=== PATIENT | male | born 1970 | race Caucasian/White ===

== ENCOUNTER 2022-06-28 09:16 | Inpatient (IN) | payer SELFPAY ==
[2022-06-28 10:57] LABS: #Basophils 0.1 thou/uL (0.0-0.2); #Eosinphils 0.4 thou/uL (0.0-0.7); #Lymphocytes 1.2 thou/uL (1.20-3.40); #Monocytes 0.6 thou/uL (0.11-0.59); #Neutrophils 7.4 thou/uL (1.40-6.50); %Basophils 0.5 % (0.0-1.0); %Eosinophils 4.1 % (0.0-10.0); %Lymphocytes 12.7 % (21.0-51.0); %Monocytes 5.8 % (0.0-10.0); %Neutrophils 76.9 % (42.0-75.0); Hemoglobin 12.9 g/dL (14.0-18.0); Mean Corpuscular HGB CONC 33.9 g/dL (32.0-36.0); Mean Corpuscular Hemoglobin 29.7 pg (27.0-31.0); Mean Corpuscular Volume 87.6 fL (78.0-98.0); Mean Platelet Volume 6.7 fL (7.4-10.4); Platelet Count 293 thou/uL (130-400); RBC Distribution Width 11.1 % (11.5-14.5); Red Blood Cell (RBC) Count 4.35 mill/uL (4.70-6.10); White Blood Cell (WBC) Count 9.6 thou/uL (4.8-10.8)
[2022-06-28] MEDS ORDERED: Cefepime 2 GM VIAL ONE (11:06)
[2022-06-28 11:17] LABS: ALT (SGPT) 11 U/L (8-55); AST (SGOT) 10 U/L (5-34); Alkaline Phosphatase 85 U/L (40-110); Anion Gap 13 mmol/L (10-20); BUN (Urea Nitrogen) 28 mg/dL (8.4-25.7); Bilirubin, Total 0.6 mg/dL (0.2-1.2); Calc. Creatinine Clearance 0 mL/min (70-130); Carbon Dioxide 22 mmol/L (22-29); Chloride 101 mmol/L (98-107); Estimated GFR 76; Globulin 3.2 g/dL (2.4-3.5); Glucose 405 mg/dL (70-105); Potassium 4.6 mmol/L (3.5-5.1); Protein, Total 7.2 g/dL (6.0-8.3); Sodium 131 mmol/L (136-145)
[2022-06-28] MEDS ORDERED: Vancomycin 1 GM/200 ML BAG ONE (11:59)
[2022-06-28] MEDS ORDERED: Dextrose 50% Abboject 50 ML SYRINGE SLOW IVP PRN (13:26)
[2022-06-28] MEDS ORDERED: Dextrose 5% in Water 1,000 ML IV PRN (13:26)
[2022-06-28] MEDS ORDERED: Acetaminophen 325 MG TAB PO PRN (13:53)
[2022-06-28] MEDS ORDERED: NEED HT/WT IVPB PRN (14:12)
[2022-06-28 16:04] VITALS: BMI 22.6
[2022-06-28] MEDS: Sodium Chloride 0.9% 1,000 ML IV SCH (16:28)
[2022-06-28] MEDS ORDERED: Vancomycin HCl 500 MG in Sodium Chloride 0.9% 100 ML IVPB SCH (16:30)
[2022-06-28] MEDS: HumaLOG 300 UNITS/3 ML VIAL SC PRN ×2 (17:40→21:43)
[2022-06-28] MEDS: Famotidine 20 MG TAB PO SCH (20:19)
[2022-06-28] MEDS: Cefepime 2 GM in Sodium Chloride 0.9% 100 ML IVPB SCH (20:19)
[2022-06-28] MEDS ORDERED: Vancomycin 1 GM in Premix Bag 1 BAG IVPB SCH (21:00)
[2022-06-29] MEDS: VANCOMYCIN 1.25 GM/250 ML BAG 1.25 GM in Premix Bag 1 BAG IVPB SCH ×2 (00:36→12:28)
[2022-06-29 06:25] LABS: #Basophils 0.1 thou/uL (0.0-0.2); #Eosinphils 0.5 thou/uL (0.0-0.7); #Lymphocytes 1.5 thou/uL (1.20-3.40); #Monocytes 0.6 thou/uL (0.11-0.59); #Neutrophils 5.1 thou/uL (1.40-6.50); %Basophils 0.9 % (0.0-1.0); %Eosinophils 6.6 % (0.0-10.0); %Lymphocytes 19.3 % (21.0-51.0); %Monocytes 7.4 % (0.0-10.0); %Neutrophils 65.8 % (42.0-75.0); Hemoglobin 12.4 g/dL (14.0-18.0); Mean Corpuscular Hemoglobin 30.7 pg (27.0-31.0); Mean Corpuscular Volume 87.5 fL (78.0-98.0); Mean Platelet Volume 6.6 fL (7.4-10.4); Platelet Count 293 thou/uL (130-400); RBC Distribution Width 11.1 % (11.5-14.5); Red Blood Cell (RBC) Count 4.06 mill/uL (4.70-6.10); White Blood Cell (WBC) Count 7.8 thou/uL (4.8-10.8)
[2022-06-29 06:51] LABS: Anion Gap 9 mmol/L (10-20); BUN (Urea Nitrogen) 16 mg/dL (8.4-25.7); Calc. Creatinine Clearance 97 mL/min (70-130); Carbon Dioxide 25 mmol/L (22-29); Chloride 104 mmol/L (98-107); Estimated GFR 96; Glucose 288 mg/dL (70-105); Potassium 4.2 mmol/L (3.5-5.1); Sodium 134 mmol/L (136-145)
[2022-06-29 07:40] LABS: Hemoglobin A1c 9.8 % (4.0-6.0)
[2022-06-29] MEDS: Enoxaparin Sodium 40 MG/0.4 ML SYRINGE SC SCH (08:06)
[2022-06-29] MEDS: Famotidine 20 MG TAB PO SCH ×2 (08:06→20:44)
[2022-06-29] MEDS: Sodium Chloride 0.9% 1,000 ML IV SCH (08:06)
[2022-06-29] MEDS: Cefepime 2 GM in Sodium Chloride 0.9% 100 ML IVPB SCH ×2 (08:06→20:43)
[2022-06-29] MEDS ORDERED: fentaNYL Citrate/PF 100 MCG/2 ML SYRINGE ONE (10:14)
[2022-06-29] MEDS ORDERED: Bacitracin Zinc Ointment 30 gm TUBE ONE (10:15)
[2022-06-29] MEDS ORDERED: Bupivacaine/Epinephrine 0.25% 30 ML VIAL ONE (10:15)
[2022-06-29] MEDS ORDERED: Ondansetron PF 4 MG/2 ML Vial ONE (10:31)
[2022-06-29] MEDS ORDERED: PROPOFOL 200 MG/20 ML VIAL ONE (10:31)
[2022-06-29] MEDS ORDERED: Lidocaine 1% MPF 2 ML VIAL ONE (10:31)
[2022-06-29] MEDS ORDERED: Promethazine HCl 25 MG/ML VIAL IVPB PRN (11:35)
[2022-06-29] MEDS ORDERED: Ondansetron HCl/PF 4 MG/2 ML Vial IVP PRN (11:35)
[2022-06-29] MEDS ORDERED: Promethazine HCl 25 MG/ML VIAL IM PRN (11:35)
[2022-06-29] MEDS: HumaLOG 300 UNITS/3 ML VIAL SC PRN ×2 (12:45→17:06)
[2022-06-29] MEDS ORDERED: Morphine 2 MG/ML VIAL SLOW IVP PRN (12:51)
[2022-06-29] MEDS ORDERED: HYDROcodone/Acetaminophen 5/325 mg Tablet PO PRN (12:51)
[2022-06-29] MEDS ORDERED: hydrALAZINE 20 MG/ML VIAL SLOW IVP PRN (13:15)
[2022-06-29] MEDS: metFORMIN 500 MG TAB PO SCH (17:06)
[2022-06-29] MEDS: Insulin NPH Human Isophane 100 UNIT/ML (10 ML VIAL) SC SCH (20:44)
[2022-06-29 23:58] LABS: Vancomycin, Trough 12.5 ug/mL
[2022-06-30] MEDS: VANCOMYCIN 1.25 GM/250 ML BAG 1.25 GM in Premix Bag 1 BAG IVPB SCH (00:05)
[2022-06-30] MEDS: HumaLOG 300 UNITS/3 ML VIAL SC PRN ×3 (05:41→17:30)
[2022-06-30 07:05] LABS: #Basophils 0.1 thou/uL (0.0-0.2); #Eosinphils 0.4 thou/uL (0.0-0.7); #Lymphocytes 1.4 thou/uL (1.20-3.40); #Monocytes 0.5 thou/uL (0.11-0.59); #Neutrophils 3.7 thou/uL (1.40-6.50); %Basophils 1.2 % (0.0-1.0); %Eosinophils 7.2 % (0.0-10.0); %Lymphocytes 23.4 % (21.0-51.0); %Monocytes 7.7 % (0.0-10.0); %Neutrophils 60.6 % (42.0-75.0); Hemoglobin 11.8 g/dL (14.0-18.0); Mean Corpuscular HGB CONC 33.8 g/dL (32.0-36.0); Mean Corpuscular Hemoglobin 29.4 pg (27.0-31.0); Mean Corpuscular Volume 86.9 fL (78.0-98.0); Mean Platelet Volume 6.6 fL (7.4-10.4); Platelet Count 270 thou/uL (130-400); RBC Distribution Width 11.1 % (11.5-14.5); Red Blood Cell (RBC) Count 4.03 mill/uL (4.70-6.10); White Blood Cell (WBC) Count 6.1 thou/uL (4.8-10.8)
[2022-06-30 07:12] LABS: Anion Gap 12 mmol/L (10-20); BUN (Urea Nitrogen) 16 mg/dL (8.4-25.7); Calc. Creatinine Clearance 93 mL/min (70-130); Carbon Dioxide 23 mmol/L (22-29); Cardiac Risk 6.6 (Less than 4.5); Chloride 105 mmol/L (98-107); Cholesterol 138 mg/dl (< 200 Desired); Estimated GFR 91; Glucose 261 mg/dL (70-105); HDL Cholesterol 21 mg/dL (>60 Neg Risk); LDL Cholesterol, Calculated 80 mg/dL; Magnesium 2.2 mg/dL (1.6-2.6); Potassium 4.1 mmol/L (3.5-5.1); Sodium 136 mmol/L (136-145); Triglycerides 184 mg/dL (Less than 150)
[2022-06-30 07:13] LABS: ALT (SGPT) 11 U/L (8-55); AST (SGOT) 11 U/L (5-34); Albumin 3.6 g/dL (3.5-5.0); Alkaline Phosphatase 75 U/L (40-110); Bilirubin, Direct 0.1 mg/dL (0.1-0.3); Bilirubin, Total 0.3 mg/dL (0.2-1.2); CRP (Inflammatory) 2.25 mg/dL (= or < 0.5); Protein, Total 7.2 g/dL (6.0-8.3)
[2022-06-30] MEDS: Cefepime 2 GM in Sodium Chloride 0.9% 100 ML IVPB SCH ×2 (08:24→21:16)
[2022-06-30] MEDS: metFORMIN 500 MG TAB PO SCH ×2 (08:25→17:30)
[2022-06-30] MEDS: Famotidine 20 MG TAB PO SCH ×2 (08:25→21:16)
[2022-06-30] MEDS: Enoxaparin Sodium 40 MG/0.4 ML SYRINGE SC SCH (08:25)
[2022-06-30] MEDS: Insulin NPH Human Isophane 100 UNIT/ML (10 ML VIAL) SC SCH ×2 (08:26→21:28)
[2022-06-30] MEDS ORDERED: Lisinopril 5 MG TAB PO SCH (10:15)
[2022-06-30] MEDS: Vancomycin 1.5 GRAM/300 ML BAG 1.5 GM in Premix Bag 1 BAG IVPB SCH (12:06)
[2022-07-01] MEDS: Vancomycin 1.5 GRAM/300 ML BAG 1.5 GM in Premix Bag 1 BAG IVPB SCH ×2 (00:47→12:24)
[2022-07-01] MEDS: HumaLOG 300 UNITS/3 ML VIAL SC PRN ×3 (06:28→16:49)
[2022-07-01 06:47] LABS: #Basophils 0.1 thou/uL (0.0-0.2); #Eosinphils 0.5 thou/uL (0.0-0.7); #Lymphocytes 1.7 thou/uL (1.20-3.40); #Monocytes 0.5 thou/uL (0.11-0.59); #Neutrophils 3.6 thou/uL (1.40-6.50); %Basophils 1.3 % (0.0-1.0); %Eosinophils 7.7 % (0.0-10.0); %Lymphocytes 27.1 % (21.0-51.0); %Neutrophils 55.8 % (42.0-75.0); Hemoglobin 11.6 g/dL (14.0-18.0); Mean Corpuscular HGB CONC 35.2 g/dL (32.0-36.0); Mean Corpuscular Hemoglobin 30.9 pg (27.0-31.0); Mean Corpuscular Volume 87.8 fL (78.0-98.0); Mean Platelet Volume 6.8 fL (7.4-10.4); Platelet Count 283 thou/uL (130-400); Red Blood Cell (RBC) Count 3.74 mill/uL (4.70-6.10); White Blood Cell (WBC) Count 6.4 thou/uL (4.8-10.8)
[2022-07-01 07:05] LABS: Anion Gap 11 mmol/L (10-20); BUN (Urea Nitrogen) 21 mg/dL (8.4-25.7); Calc. Creatinine Clearance 94 mL/min (70-130); Calcium 8.9 mg/dL (7.8-10.44); Carbon Dioxide 23 mmol/L (22-29); Chloride 105 mmol/L (98-107); Estimated GFR 92; Glucose 358 mg/dL (70-105); Magnesium 1.9 mg/dL (1.6-2.6); Potassium 4.1 mmol/L (3.5-5.1); Sodium 135 mmol/L (136-145)
[2022-07-01] MEDS: Cefepime 2 GM in Sodium Chloride 0.9% 100 ML IVPB SCH (08:10)
[2022-07-01] MEDS: Enoxaparin Sodium 40 MG/0.4 ML SYRINGE SC SCH (08:10)
[2022-07-01] MEDS: Famotidine 20 MG TAB PO SCH ×2 (08:10→20:32)
[2022-07-01] MEDS: metFORMIN 500 MG TAB PO SCH ×2 (08:10→16:49)
[2022-07-01] MEDS: Lisinopril 5 MG TAB PO SCH (08:11)
[2022-07-01] MEDS: Insulin NPH Human Isophane 100 UNIT/ML (10 ML VIAL) SC SCH ×2 (08:11→20:33)
[2022-07-01 12:01] LABS: Vancomycin, Trough 15.6 ug/mL
[2022-07-01] MEDS ORDERED: Dextrose 5% in Water 1,000 ML IV PRN (12:41)
[2022-07-01] MEDS ORDERED: Dextrose 50% Abboject 50 ML SYRINGE SLOW IVP PRN (12:41)
[2022-07-01] MEDS: Cholecalciferol 1,000 UNITS (25 MCG) TAB PO SCH (20:32)
[2022-07-02] MEDS: Vancomycin 1.5 GRAM/300 ML BAG 1.5 GM in Premix Bag 1 BAG IVPB SCH ×2 (01:00→11:28)
[2022-07-02 06:17] LABS: #Eosinphils 0.5 thou/uL (0.0-0.7); #Lymphocytes 1.7 thou/uL (1.20-3.40); #Monocytes 0.5 thou/uL (0.11-0.59); #Neutrophils 4.1 thou/uL (1.40-6.50); %Basophils 0.7 % (0.0-1.0); %Lymphocytes 24.7 % (21.0-51.0); %Monocytes 7.4 % (0.0-10.0); %Neutrophils 60.2 % (42.0-75.0); Hemoglobin 11.9 g/dL (14.0-18.0); Mean Corpuscular HGB CONC 35.6 g/dL (32.0-36.0); Mean Corpuscular Hemoglobin 31.1 pg (27.0-31.0); Mean Corpuscular Volume 87.3 fL (78.0-98.0); Mean Platelet Volume 6.6 fL (7.4-10.4); Platelet Count 288 thou/uL (130-400); RBC Distribution Width 11.2 % (11.5-14.5); Red Blood Cell (RBC) Count 3.83 mill/uL (4.70-6.10); White Blood Cell (WBC) Count 6.8 thou/uL (4.8-10.8)
[2022-07-02 06:33] LABS: Anion Gap 13 mmol/L (10-20); BUN (Urea Nitrogen) 24 mg/dL (8.4-25.7); Calc. Creatinine Clearance 84 mL/min (70-130); Calcium 9.6 mg/dL (7.8-10.44); Carbon Dioxide 22 mmol/L (22-29); Chloride 105 mmol/L (98-107); Estimated GFR 80; Glucose 265 mg/dL (70-105); Magnesium 1.8 mg/dL (1.6-2.6); Sodium 136 mmol/L (136-145)
[2022-07-02] MEDS: Famotidine 20 MG TAB PO SCH ×2 (08:18→21:15)
[2022-07-02] MEDS: Enoxaparin Sodium 40 MG/0.4 ML SYRINGE SC SCH (08:18)
[2022-07-02] MEDS: Lisinopril 5 MG TAB PO SCH (08:19)
[2022-07-02] MEDS: metFORMIN 500 MG TAB PO SCH ×2 (08:19→17:23)
[2022-07-02] MEDS: Insulin NPH Human Isophane 100 UNIT/ML (10 ML VIAL) SC SCH ×2 (08:19→21:19)
[2022-07-02] MEDS ORDERED: Lisinopril 5 MG TAB PO SCH (08:52)
[2022-07-02] MEDS: Lisinopril 10 MG TAB PO SCH (09:24)
[2022-07-02] MEDS: HumaLOG 300 UNITS/3 ML VIAL SC PRN ×3 (11:33→21:20)
[2022-07-02] MEDS: Cholecalciferol 1,000 UNITS (25 MCG) TAB PO SCH (21:15)
[2022-07-02 23:38] LABS: Vancomycin, Trough 13.9 ug/mL
[2022-07-03] MEDS: Vancomycin 1.5 GRAM/300 ML BAG 1.5 GM in Premix Bag 1 BAG IVPB SCH ×3 (00:30→23:49)
[2022-07-03] MEDS: HumaLOG 300 UNITS/3 ML VIAL SC PRN ×2 (05:43→11:19)
[2022-07-03 06:38] LABS: #Basophils 0.1 thou/uL (0.0-0.2); #Eosinphils 0.5 thou/uL (0.0-0.7); #Lymphocytes 1.7 thou/uL (1.20-3.40); #Monocytes 0.6 thou/uL (0.11-0.59); #Neutrophils 4.3 thou/uL (1.40-6.50); %Basophils 0.8 % (0.0-1.0); %Eosinophils 7.4 % (0.0-10.0); %Lymphocytes 23.9 % (21.0-51.0); %Monocytes 8.2 % (0.0-10.0); %Neutrophils 59.8 % (42.0-75.0); Mean Corpuscular HGB CONC 33.7 g/dL (32.0-36.0); Mean Corpuscular Hemoglobin 29.5 pg (27.0-31.0); Mean Corpuscular Volume 87.7 fL (78.0-98.0); Mean Platelet Volume 6.4 fL (7.4-10.4); Platelet Count 299 thou/uL (130-400); RBC Distribution Width 11.1 % (11.5-14.5); Red Blood Cell (RBC) Count 4.08 mill/uL (4.70-6.10); White Blood Cell (WBC) Count 7.2 thou/uL (4.8-10.8)
[2022-07-03 07:00] LABS: Anion Gap 12 mmol/L (10-20); BUN (Urea Nitrogen) 24 mg/dL (8.4-25.7); Calc. Creatinine Clearance 89 mL/min (70-130); Calcium 9.4 mg/dL (7.8-10.44); Carbon Dioxide 23 mmol/L (22-29); Chloride 104 mmol/L (98-107); Estimated GFR 86; Glucose 255 mg/dL (70-105); Magnesium 1.7 mg/dL (1.6-2.6); Potassium 3.8 mmol/L (3.5-5.1); Sodium 135 mmol/L (136-145)
[2022-07-03] MEDS: Famotidine 20 MG TAB PO SCH ×2 (08:36→21:29)
[2022-07-03] MEDS: Lisinopril 10 MG TAB PO SCH (08:36)
[2022-07-03] MEDS: metFORMIN 500 MG TAB PO SCH ×2 (08:36→16:15)
[2022-07-03] MEDS: Insulin NPH Human Isophane 100 UNIT/ML (10 ML VIAL) SC SCH ×2 (08:37→21:29)
[2022-07-03] MEDS: Enoxaparin Sodium 40 MG/0.4 ML SYRINGE SC SCH (08:37)
[2022-07-03] MEDS ORDERED: glipiZIDE 5 MG TAB PO SCH (11:00)
[2022-07-03] MEDS: glipiZIDE 5 MG TAB PO SCH (16:15)
[2022-07-03] MEDS: Cholecalciferol 1,000 UNITS (25 MCG) TAB PO SCH (21:29)
[2022-07-04] MEDS: HumaLOG 300 UNITS/3 ML VIAL SC PRN ×2 (05:29→16:24)
[2022-07-04 06:34] LABS: #Basophils 0.1 thou/uL (0.0-0.2); #Eosinphils 0.5 thou/uL (0.0-0.7); #Lymphocytes 1.9 thou/uL (1.20-3.40); #Monocytes 0.5 thou/uL (0.11-0.59); #Neutrophils 4.8 thou/uL (1.40-6.50); %Basophils 0.7 % (0.0-1.0); %Eosinophils 7.2 % (0.0-10.0); %Lymphocytes 24.3 % (21.0-51.0); %Monocytes 5.9 % (0.0-10.0); Hemoglobin 12.5 g/dL (14.0-18.0); Mean Corpuscular HGB CONC 33.6 g/dL (32.0-36.0); Mean Corpuscular Hemoglobin 29.6 pg (27.0-31.0); Mean Corpuscular Volume 88.1 fL (78.0-98.0); Mean Platelet Volume 6.3 fL (7.4-10.4); Platelet Count 308 thou/uL (130-400); RBC Distribution Width 11.2 % (11.5-14.5); Red Blood Cell (RBC) Count 4.23 mill/uL (4.70-6.10); White Blood Cell (WBC) Count 7.7 thou/uL (4.8-10.8)
[2022-07-04 07:02] LABS: Anion Gap 11 mmol/L (10-20); BUN (Urea Nitrogen) 25 mg/dL (8.4-25.7); Calc. Creatinine Clearance 87 mL/min (70-130); Carbon Dioxide 24 mmol/L (22-29); Chloride 103 mmol/L (98-107); Estimated GFR 84; Glucose 245 mg/dL (70-105); Magnesium 2.1 mg/dL (1.6-2.6); Sodium 134 mmol/L (136-145)
[2022-07-04] MEDS ORDERED: glipiZIDE 5 MG TAB PO SCH (07:30)
[2022-07-04] MEDS: Insulin NPH Human Isophane 100 UNIT/ML (10 ML VIAL) SC SCH (07:46)
[2022-07-04] MEDS: metFORMIN 500 MG TAB PO SCH ×2 (07:46→16:22)
[2022-07-04] MEDS: Famotidine 20 MG TAB PO SCH (07:46)
[2022-07-04] MEDS: Enoxaparin Sodium 40 MG/0.4 ML SYRINGE SC SCH (07:47)
[2022-07-04] MEDS: glipiZIDE 5 MG TAB PO SCH ×2 (07:47→16:22)
[2022-07-04] MEDS: Lisinopril 10 MG TAB PO SCH (07:47)
[2022-07-04 07:48] VITALS: BP 147/91
[2022-07-04 08:43] VITALS: TEMP 97.9
[2022-07-04] MEDS: Vancomycin 1.5 GRAM/300 ML BAG 1.5 GM in Premix Bag 1 BAG IVPB SCH (11:51)
[2022-07-05] MEDS ORDERED: Losartan 25 MG TAB PO SCH (09:00)
[2022-07-05] MEDS ORDERED: Lisinopril 20 MG TAB PO SCH (09:00)
== END 2022-07-04 17:39 | disposition home or self-care (01) | DRG 617 ==
LOC: ERS 09:16 → ERHOLD 11:55 → T4-A 15:32
PROVIDERS: ADMIT Internal Medicine; ATTEND Internal Medicine
PROC: 0Y6S0Z1 Detachment at Left 2nd Toe, High, Open Approach (ICD-10-PCS; principal; 2022-06-29)
DX: E11.69 Type 2 diabetes mellitus with other specified complication (principal); L03.116 Cellulitis of left lower limb; M86.472 Chronic osteomyelitis with draining sinus, left ankle and foot; Z20.822 Contact with and (suspected) exposure to COVID-19; E11.65 Type 2 diabetes mellitus with hyperglycemia; I10 Essential (primary) hypertension; E11.40 Type 2 diabetes mellitus with diabetic neuropathy, unspecified; E11.621 Type 2 diabetes mellitus with foot ulcer; L97.529 Non-pressure chronic ulcer of other part of left foot with unspecified severity; N17.9 Acute kidney failure, unspecified; Z89.412 Acquired absence of left great toe; Z98.890 Other specified postprocedural states; Z91.14 Patient's other noncompliance with medication regimen; Z89.422 Acquired absence of other left toe(s); Z83.3 Family history of diabetes mellitus
CPT/HCPCS: 36415; 36416; 70450; 80048; 80053; 80061; 80076; 80202; 82306; 83036; 83605; 83735; 84443; 85025; 85652; 86140; 87040; 87070; 87077; 87186; 87205; 88305; 88311; 96374; 96375; 97139; J0360; J0692; J1650; J1815; J2270; J2405; J2704; J3370; J3490; U0003; U0005